=== PATIENT | male | born 1955 | race Caucasian/White ===

== ENCOUNTER 2019-06-27 19:18 | Emergency (ER) | payer BC ==
--- NOTE | 2019-06-27 20:42 | CT ---
CT OF CHEST PERFORMED WITHOUT CONTRAST ENHANCEMENT: 06/27/19 HISTORY: Evaluation for foreign body. Thyroid gland shows nodules within the left lobe, better investigated with ultrasound. No significan t mediastinal adenopathy. The thoracic aorta is normal in caliber. There are some coronary calcificat ions seen. I do not appreciate any radiopaque foreign body. No signs of any pneumomediastinum. Subsegmental atelectatic changes in the lung bases. Some interstitial change also seen which is more of a reticular appearance probably related to scarring. The visualized liver parenchyma shows no focal findings. There appears to be a gallstone in the part ially visualized gallbladder. IMPRESSION: 1. No evidence of foreign body. 2. Left lobe thyroid nodules better investigated with follow-up ultrasound. 3. Probable small gallstone. 4. Slightly prominent appearing spleen which is incompletely visualized on this exam. POS: [facility]
--- NOTE | 2019-06-27 20:44 | CT ---
CT OF NECK PERFORMED WITHOUT CONTRAST ENHANCEMENT: 06/27/19 HISTORY: Evaluation for foreign body. The visualized sinuses shows some minimal mucosal change within the right maxillary sinus and bilater al ethmoid air cells. Parapharyngeal spaces and tonsillar regions appear normal. Parotid and submandi bular glands are normal. No significant jugular chain adenopathy. The vocal cord region is normal. There are left lobe thyroid nodules within an enlarged left lobe. This would be better investigated w ith a nonemergent ultrasound. I do not appreciate any foreign bodies. IMPRESSION: 1. Left lobe thyroid nodules. Ultrasound would be suggested. 2. No radiopaque foreign bodies. POS: [facility]
== END 2019-06-27 21:00 | disposition home or self-care (01) ==
LOC: MADERS 19:18
DX: T18.128A Food in esophagus causing other injury, initial encounter (principal); K80.80 Other cholelithiasis without obstruction; E04.1 Nontoxic single thyroid nodule; E78.5 Hyperlipidemia, unspecified; E78.00 Pure hypercholesterolemia, unspecified; F41.9 Anxiety disorder, unspecified; Z79.82 Long term (current) use of aspirin; Z79.899 Other long term (current) drug therapy
CPT/HCPCS: 70490; 71250